=== PATIENT | male | born 1985 | race Caucasian/White ===

== ENCOUNTER 2025-04-18 21:50 | Emergency (ER) | payer BC, SELFPAY ==
--- OUTSIDE RECORDS SUMMARY | 2025-04-18 21:54 | XMS_ITS | Clinical Summary ---
Author Organization [facility] Address [address] [place] [address] Care Team Providers Care Sewing Machinist Name Role Phone Unavailable Primary Care Provider Unavailabl e Source Comments Patient records contain information from all sites at [facility]. For routine questions regarding patient records, call [phone] during business hours, M-F 8:00 AM - 5:00 PM Central Time. Record requests for emergency care only can be directed to [phone] at any time.[facility] Allergies Active Allergy Reactions Criticality Noted Date Comments Pollen Extracts Other (see comments) 11/14/2016 SEASONAL-no reaction type or severity noted in [employer] Medications * This document contains information received from the source organization and may not represent a complete record from that organization. nicotine (for_NICODERM CQ) 14 mg/24 hr patch Apply 1 patch topically daily. 7 Active nicotine (for_NICODERM CQ) 21 mg/24 hr patch Apply 1 patch topically daily. 7 Active venlafaxine XR (for_EFFEXOR-XR ) 75 mg 24 hr capsule Take 1 capsule by mouth daily. 7 Active venlafaxine XR (EFFEXOR-XR) 150 mg 24 hr capsule Take 150 mg by mouth. 2 Active Active Problems Problem Noted Date Diagnosed Date Dependence Alcohol 11/29/2016 Overview (12/24/2016): Dependence Alcohol NOS Depression Anxiety 11/29/2016 Overview (12/24/2016): Depression Anxiety Dependence Alcohol Episodic Drinking 11/07/2004 Overview (10/29/2016): Alcohol Dependence Episodic Drinking Seizure 10/29/2004 Overview (10/29/2016): Spells Immunizations Immunization Administration Dates Next Due Td Preservative Free (TENIVAC, DECAVAC) 02/08/20 04 Social History Tobacco Use Types Packs/Day Years Used Date Smoking Tobacco: Every Day [facility] Utilities Answer Date Recorded In the past 12 months has th e electric, gas, oil, or water company threatened to shut off services in your home? No 08/27/2023 Hunger Vital Sign Answer Date Recorded Within the past 12 months, y ou worried that your food would run out before you got the money to buy more. Never true 08/27/19 24 Within the past 12 months, t he food you bought just didn't last and you didn't have money to get more. Never true 08/27/2023 PRAPARE - Transportation Answer Date Re corded In the past 12 months, has l ack of transportation kept you from medical appointments or from getting medications? No 08/08 In the past 12 months, has l ack of transportation kept you from meetings, work, or from getting things needed for daily living? Yes 08/27/2023 Housing Stability Answer Date Recorded What is your living situation today? 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 Gender Identity Male 09/18/2021 3:39 PM CDT Sexual Orientation Straight 09/18/2021 3: 39 PM CDT Last Filed Vital Signs Vital Sign Reading Time Taken Comments Blood Pressure 140/78 11/29/2016 10:20 AM CDT Pulse 80 11/29/2016 10:20 AM CDT Temperature - - Respiratory Rate - - Oxygen Saturation - - Inhaled Oxygen Concentration - - Weight - - Height - - Body Mass Index - - Plan of Treatment Health Maintenance Due Date Last Done Comments Hepatitis C Screening 1985 Lipid (Cholesterol) Screening 1985 Hepatitis B Vaccines (1 of 3 - 19+ 3-dose series) 2004 Pneumococcal vaccine (0-49 years) (1 of 2 - PCV) 2004 HPV Vaccines (1 - 3-dose SCDM series) 2012 Depression Screening (Annual PHQ-2) 06/09/2024 COVID-19 Vaccine (1 - season) 2025 Influenza Vaccine (#1) 2025 , 06/15/2019, 03/16/2018, Additional history exists DTaP,Tdap,and Td Vaccines (4 - Td or Tdap) 03/06/2026 03/06/2016, 02/08/2004, 09/19/1997 HIV Screening Completed 02/24/2020 Hepatitis B Screening Discontinued 02/24/2020 IPV Vaccines Aged Out No longer eligi ble based on patient's age to complete this topic
--- OUTSIDE RECORDS SUMMARY | 2025-04-18 21:54 | XMS_ITS | Clinical Summary ---
Author Organization [facility] Address [address] , [address] [place] [address] Phone Care Team Providers Care Marine Engine Machinist Apprentice Name Role Phone [facility] Unavailable Unava ilable Conditions or Problems Problem Name Problem Code Onset Date Status Entry Date Provider Comment Standard Description Annotate Left ulnar neuropathy 894898451 (SNOMED CT) Active Cong Anderson MD Ulnar neuropathy Hand numbness [id number] (SNOMED CT) Active Cong Anderson MD Numbness of hand Medications No information available. Medications Administered No information available. Allergies, Adverse Reactions, Alerts No information available. Results Date Name Value Unit Range Flag Description Internal Other: Authorizatio n - OBS [email or web address] Yes Authoriza tion: Release of Information - Authorize [facility] - Payment and Healthcare Operations ROIAUTHOTHER Yes Authoriz ation: Release of Information - Authorize Others/Insurance - Payment and Healthcare Operations HIECONSENT Yes Consent To Release information to the Health Information Exchange (HIE) [email or web address] Yes Authorizat ion: Authorization for [facility] to leave messages, voicemail, send text messages, send emails AUTHRELHCARE Yes Authoriz ation: Release/Retrieval of Information to/from Healthcare Facilities, Pharmacy Benefit Payers and Providers AUTHPRIVPRAC Yes Authoriz ation: Notice of privacy practices AUTHBENEFIT Yes Authoriza tion: Assignment of Benefits and Payment Agreement Plan of Care No information available. Procedures Code Procedure Name Date Entry Date CPT-75794 Nerve Conduction 11-12 studies CPT-54591 EMG with NCS (5+ muscles) - 1 limb 12/19 Vital Signs No information available. Immunizations No information available. Advance Directives No information available.
[2025-04-18 22:03] VITALS: BP 145/76; PULSE 88; RESP 18; TEMP 36.8; O2SAT 97; BMI 22.0
--- NOTE | 2025-04-18 22:30 | ED.GENADULT ---
HPI - General Adult General Date Seen: 04/18/25 Chief complaint: Nausea/Vomiting Stated complaint: Vomiting Time Seen by Provider: 04/18/25 22:14 Source: patient Mode of arrival: ambulatory Limitations: no limitations History of Present Illness HPI narrative: Patient is a 40-year-old male presenting to the emergency department for vomiting. He states he has a history of multiple allergies in today he believed he had allergic reaction to a canned enchilada mix. He states he has never had this specific brand before. He states after he ate it he started getting very nauseated and vomiting. States he vomited multiple times. He also felt his eyes for puffing up with some abdominal pain. He tried to take some Benadryl. He was unable to keep the Benadryl down and he began to vomit again. Eventually he was able to drink some water and took some more Benadryl. He did notice some hives on his body that are now improving. Does not have an EpiPen at home. Since he took the Benadryl he states symptoms are improving. Denies chest pain. He did feel like his throat was swelling a little bit but he never felt short of breath. He states he felt like he was vomiting up a razor blades. No other concerns noted. States he feels asymptomatic at this time. Related Data Home Medications ?Medication ?Instructions ?Recorded ?Confirmed venlafaxine 150 mg 150 mg PO DAILY 04/18/25 04/18/25 capsule,extended release 24 hr Previous Rx's ?Medication ?Instructions ?Recorded epinephrine 0.3 mg/0.3 mL 0.3 mg (0.3 mL) IM Q5-15M PRN #2 ea 04/18/25 injection, auto-injector Allergies Allergy/AdvReac Type Severity Reaction Status Date / Time bananas Allergy Mild Uncoded 04/18/25 22:09 Review of Systems Status of ROS: Reports: 10 or more systems reviewed and unremarkable except as noted in History and below [facility] Social History Smoking Status: Current every day smoker How often do you have a drink containing alcohol: 2-4 times a month AUDIT-C Alcohol total score: 2 Non-prescribed substance use: denies use Exam Narrative: Exam Narrative: Const: Well-nourished, Well-developed, in no distress Eyes: PERRL, no conjunctival injection, and symmetrical lids HENT: Atraumatic external nose and ears. Moist mucous membranes. Neck: Symmetric, trachea midline, No thyromegaly. CVS: RRR, No murmurs or gallops. Peripheral pulses 2+ and equal in all extremities RESP: Unlabored respiratory effort. Clear to auscultation bilaterally. GI: Nontender/Nondistended, No rebound or guarding. MSK:Extremities w/o deformity, Normal Active ROM Skin: Warm, Dry. Small amount of faint hives seen on torso Neuro: Normal Muscle tone, No focal neurological deficits. Psych: Awake, Alert, & Oriented x3. Appropriate mood and affect. Const: Vital Signs, click to edit/add: Vital Signs - 24 hr 04/18/25 22:03 Temperature 98.2 F Pulse Rate [Pulse Oximeter] 88 Respiratory Rate 18 Blood Pressure [Ri ght Upper Arm] 145/76 H Pulse Oximetry 97 Oxygen Delivery Me thod Room Air Course Vital Signs Vital signs: Initial Vital Signs Temperature 98.2 F 04/18/25 22:03 Temperature Source Temporal Artery Scan 04/18/25 22:03 Pulse Rate 88 04/18/25 22:03 Respiratory Rate 18 04/18/25 22:03 Blood Pressure 145/76 H 04/18/25 22:03 Blood Pressure Mean 99 04/18/25 22:03 Blood Pressure Position Sitting 04/18/25 22:03 Pulse Oximetry 97 04/18/25 22:03 Oxygen Delivery Method Room Air 04/18/25 22:03 Vital Signs Temperature 98.2 F 04/18/25 22:03 Pulse Rate 88 04/18/25 22:03 Respiratory Rate 18 04/18/25 22:03 Blood Pressure 145/76 H 04/18/25 22:03 Pulse Oximetry 97 04/18/25 22:03 Oxygen Delivery Method Room Air 04/18/25 22:03 Temperature 98.2 F 04/18/25 22:03 Pulse Rate 88 04/18/25 22:03 Respiratory Rate 18 04/18/25 22:03 Blood Pressure 145/76 H 04/18/25 22:03 Pulse Oximetry 97 04/18/25 22:03 Oxygen Delivery Method Room Air 04/18/25 22:03 Medical Decision Making MDM Narrative Medical decision making narrative: Patient is a 40-year-old male presenting to the emergency department for nausea, vomiting, abdominal pain, possible allergic reaction. Symptoms improved after he use Benadryl. Do not use an EpiPen. States he is asymptomatic at this time. States he no longer feels nauseated. Declines any nausea medicine at this time. I do believe he likely had allergic reaction prior to arrival but I do believe symptoms are now resolved. He is doing well. Do not believe I need to order a round of epinephrine. I will send him home with an EpiPen and steroids via instymeds. He is agreeable to this plan. Discharge Plan Discharge Clinical Impression: Allergic reaction Qualifiers: Encounter type: initial encounter Qualified Code(s): T78.40XA - Allergy, unspecified, initial encounter Patient Disposition: Home, Self-Care Condition: Stable Instructions: General Allergic Reaction (ED) Additional Instructions: I do believe you had allergic reaction based on your symptoms. You can continue take Benadryl as needed for any itchiness. Take the prednisone daily. Prednisone prescribed be instymeds. I also sent an EpiPen to your pharmacy. Prescriptions: New epinephrine 0.3 mg/0.3 mL auto-injector 0.3 mg IM Q5-15M PRNQty: 2 0RF Rx Instructions: do not exceed 3 doses per episode No Action venlafaxine 150 mg capsule,extended release 24hr 150 mg PO DAILY Stand Alone Forms: [employer] Info Instructions
--- OUTSIDE RECORDS SUMMARY | 2025-04-18 22:46 | XMS_ITS | Clinical Summary ---
Author Organization [facility] Address [address] , [address] [place] [address] Phone Care Team Providers Care Vocal Performer Name Role Phone [facility] Unavailable Unava ilable Conditions or Problems Problem Name Problem Code Onset Date Status Entry Date Provider Comment Standard Description Annotate Left ulnar neuropathy [id number] (SNOMED CT) Active Cong Anderson MD Ulnar neuropathy Hand numbness [id number] (SNOMED CT) Active Cong Anderson MD Numbness [...] Procedures Code Procedure Name Date Entry Date CPT-70266 Nerve Conduction 11-12 studies CPT-44538 EMG with NCS (5+ muscles) - 1 limb 12/19 Vital Signs No information available. Immunizations No information available. Advance Directives No information available.
--- OUTSIDE RECORDS SUMMARY | 2025-04-18 22:46 | XMS_ITS | Clinical Summary ---
Author Organization [facility] Address [address] [place] [address] Care Team Providers Care Surgical Instruments Inspector Name Role Phone Beatriz Santoyo Primary Care Provider Allergies Active Allergy Reactions Criticality Noted Date Comments Mold Extracts Itching 08/27/2007 Pollen Extracts Runny Nose 11/14/2016 SEASONAL-no reaction type or severity noted in [employer]ner Sertraline Extrapyramidal Side Effect,Headache,Paresthesi as 12/25/2009 Medications LORATADINE/PSEU DOEPHEDRINE (CLARITIN-D 24 HOUR ORAL) Take 1 tablet by mouth once daily. Active venlafaxine (EFFEXOR XR) 150 mg Extended-Releas e capsuleIndicati ons:Anxiety Take 1 Capsule (150 mg) by mouth once daily with a meal. 90 Capsule 02/01/2025 Active Active Problems Problem Noted Date Diagnosed Date Rhabdomyolysis 03/08/2016 Alcohol intoxication 03/07/2016 Hypothermia 03/07/2016 Elevated CK 03/07/2016 Lactic acidosis 03/07/2016 Depression with anxiety 12/25/2009 Encounters Date Type Department Care Team Description 01/30/2025 Refill [facility] [address] [place] [address] Beatriz Santoyo PA Refill Request (Venlafaxine) from Last 3 Months Immunizations Immunization Administration Dates Next Due Influenza, IIV3 (Age >=3 years) 04/01/2014,03/22 Influenza, IIV4 06/15/2019,03/16/2018 Influenza, IIV4 (=>6mos) MDV 2017 MMR 09/19/1997 Td (Age >=7 Years) 06/09/2005,09/19/1997 Td, Preservative Free (age >= 7 Years) 4 Tdap 03/06/2016 Family History Medical History Relation Name Comments Unknown Father drug use COPD Mother Cancer-colon Paternal Grandfather Relation Name Status Comments Brother 1 Alive Brother 2 Father Alive Mother Paternal Grandfather Social History Tobacco Use Types Packs/Day Years Used Date Smoking Tobacco: Every Day Cigarettes 1 7 Smokeless Tobacco: Never Tobacco Cessation:Ready to Q uit: Yes Comments:Trying to quit Alcohol Use Standard Drinks/Week Comments No 0 (1 standard drink = 0.6 oz pur e alcohol) Quit 07/2014 PHQ-2 Answer Date Recorded PHQ-2 TOTAL SCORE 2 02/24/2020 Social Connections Answer Date Recorded Do you often feel lonely or isolated from those around you? 0 06/08/2024 Financial Resource Strain Answer Date R ecorded Difficulty of Paying Living Expenses 3 06/08/2024 Difficulty of Paying Living Expenses Not on file 06/08/2024 Food Insecurity Answer Date Recorded Do you worry your food will run out before you are able to buy more? 1 06/08/2024 Transportation Needs Answer Date Record ed Does lack of transportation keep you from medica l appointments? 1 06/08/2024 Does lack of transportation keep you from work, meetings or getting things that you need? 1 06/08/2024 Housing Stability Answer Date Recorded What is your housing situation today? 1 06/08/2024 Utilities Answer Date Recorded Do you have trouble paying f or utilities (for example, heat, electricity, water, phone)? 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 Gender Identity Not on file Sexual Orientation Not on file Occupation Industry Job Start Date Job End Date student Not on file Not on file Not on file Obstetrics History Last Filed Vital Signs Vital Sign Reading Time Taken Comments Blood Pressure 121/81 06/08/2024 8:09 AM ARMATURE WINDER Pulse 86 06/08/2024 8:09 AM ARMATURE WINDER Temperature 36.6 C (97.8 F) 03/23/2023 10:14 AM CDT Respiratory Rate 18 03/23/2023 2:15 PM CDT Oxygen Saturation 93% 03/23/2023 2:15 PM CDT Inhaled Oxygen Concentration - - Weight 67.1 kg (148 lb) 06/08/2024 8:09 AM ARMATURE WINDER Height 172.7 cm (5' 8) 03/23/2023 10:14 AM CDT Body Mass Index 22.5 03/23/2023 10:14 AM CDT Plan of Treatment Health Maintenance Due Date Last Done Comments Hepatitis B series for 19+ ( 1 of 3 - 19+ 3-dose series) 2004 Pneumococcal series for age 6-49 (1 of 2 - PCV) 2004 HPV series for age 9-45 (1 - 3-dose SCDM series) 2012 Lipids for age 35-44 2020 Depression screening for age 12+ 02/27/2021 02/28/2020, 02/24/2020, 11/09/2018, Additional history exists BMI (ht and wt on same day) for age 18+ 12/11/2022 12/11/2021, 08/23/2020, 02/24/2020, Additional history exists Influenza Vaccine (#1) 2025 , 03/16/2018, 2017, Additional history exists Tetanus booster 03/06/2026 03/06/2016, 06/2005, 02/08/2004, Additional history exists RSV vaccine for adults or (1 - 1-dose 75+ series) 2060 HIV for age 15-65 Completed 02/24/2020, 01/02/2010 Hepatitis C screening for ag e 18-79 Completed 02/24/2020, 01/02/2010 Procedures Procedure Name Priority Date/Time Associated Diagnosis Comments ANTI HIV 1/2 Routine 02/24/2020 4:42 PM CDT Potential exposure to STD ANTI HCV Routine 02/24/2020 4:42 PM CDT Potential exposure to STD from Last 3 Months or Most Recently Relevant to Health Maintenance Results * ANTI HCV (02/24/2020 4:42 PM CDT) HEPATITIS C ANTIBODY Non-React rosalva Non-React rosalva 02/24/2020 8:54 PM CDT [facility] Comment:Antibodies to HCV no t detected; does not exclude the possibility of exposure to HCV. Blood BLOOD SPECIMEN / Unknown Venipuncture / Unknown 02/24/2020 4:42 PM CDT 02/24/2020 4:43 PM CDT Veda Mccoy MD SEND OUTS Final Result [facility] [address] * ANTI HIV 1/2 (02/24/2020 4:42 PM CDT) Pathologist [facility] HIV-1/HIV-2 ANTIBODY Non-Reacti ve Non-Reacti ve 02/24/2020 8:56 PM CDT [facility] Comment:HIV-1 p24 and HIV-1/ HIV-2 Ab not detected. Blood BLOOD SPECIMEN / Unknown Venipuncture / Unknown 02/24/2020 4:42 PM CDT 02/24/2020 4:43 PM CDT Veda Mccoy MD SEND OUTS Final Result Performing Organization Address City/[facility]/ZIP Co de Phone Number [facility] [address] from Last 3 Months or Most Recently Relevant to Health Maintenance Insurance [id number] [place] [id number] [facility] [address] [id number] [facility] [place] [id number] Advance Directives * Full Code (Latest Code Status on File) Date Activated Date Inactivated Comments 03/07/2016 11:41 AM 03/09/2016 3:24 PM Care Teams Surgical Instruments Inspector Relationship Specialty Start Date End Date Beatriz Santoyo PA [address] [facility] [id number] PCP - General Family Practice 07/31/15
== END 2025-04-18 22:47 | disposition home or self-care (01) ==
LOC: ED 22:45
PROVIDERS: Emergency Provider Student in an Organized Health Care Education/Training Program; PCP Physician Assistant Medical
DX: T78.19XA Other adverse food reactions, not elsewhere classified, initial encounter (principal); R11.2 Nausea with vomiting, unspecified
CPT/HCPCS: 99283